=== PATIENT | female | born 1980 | race Caucasian/White ===

== ENCOUNTER 2021-10-22 15:05 | Emergency (ER) | payer OTHER ==
[~2021-10-22] VITALS: Ht 162.6 cm; Wt 72.6 kg
[~2021-10-22 15:05] MED LIST: ACETAMINOPHEN-1 EAC1 PO; ACTICIN 5% CREA60 G1 TOP; ADDERALL 20 MG20 MG PO; ADDERALL XR 3030 MG PO; ALEVE220 MG PO; BACTRIM 400-801 EACH PO; BACTRIM DS TAB1 EACH PO; CARAFATE 1 GM TA1 GM PO; CIPRO; CIPRO250 MG PO; CIPRO500 MG PO; CIPROFLOXACIN500 M1 PO; CLEOCIN HCL300 MG PO; CLONAZEPAM0.125 MG; COMPAZINE10 MG PO; DIFLUCAN150 MG PO; DOXYCYCLINE 10100 M1; DOXYCYCLINE 10100 M2 PO; EMVERM100 MG PO; FISHOIL; FLAGYL 250 MG250 MG GT; FLAGYL500 MG PO; FLEXERIL PO; FLONASE 0.05%50 MCG NS; HYDROCODON-ACE1 EAC7 PO; HYDROCODONE-AP1 EAC6 PO; IBUPROFEN 800800 MG PO; IMURAN 50MG TAB50 M1 PO; ITRACONAZOLE 1100 M1 PO; LORTAB 5 MG/5001 TA1; MACROBID 100 M100 M1 PO; MOBIC7.5 MG PO; MULTIVITAMINS; NAPROSYN500 MG PO; NEURONTIN 300300 M1; NOHOMEMEDICATIONS; NORCO 5-325 TA1 EACH PO; NYSTATIN 100,0015 G1 TP; NYSTATIN15 GM TP; ONDANSETRON HCL4 M2 PO; PEPCID20 MG PO; PERCOCET 5-3251 EACH; PERCOCET 5-3251 EACH PO; PERCOCET 7.5-31 EACH PO; PHENERGAN 25 MG25 M1 PO; PREDNISONE 5 MG5 M1 PO; PYRIDIUM200 M1 PO; PYRIDIUM200 MG PO; ROBAXIN 750 MG750 M1 PO; ROBAXIN500 MG PO; TORADOL 10 MG T10 MG PO; VICODIN 5-5001 EACH PO; VIIBRYD10 MG; VITAMIN B-12100 MC1; XANAX 0.25 MG0.25 MG PO; ZOFRAN ODT4 MG PO; ZOFRAN4 MG PO; ZOLOFT100 MG; ZOLOFT100 MG PO
[2021-10-22] MEDS ORDERED: CLONAZEPAM 0.50.5 M1 PO (15:19)
[2021-10-22 15:50] LABS: INFLUENZA A ANTIGEN Negative (Negative); INFLUENZA B ANTIGEN Negative (Negative)
[2021-10-22 16:16] VITALS: BP 123/87
== END 2021-10-22 16:17 | disposition home or self-care (01) ==
LOC: M.ERS 15:05
PROVIDERS: Nurse Practitioner Family
DX: J06.9 Acute upper respiratory infection, unspecified (principal); Z20.822 Contact with and (suspected) exposure to COVID-19; F17.210 Nicotine dependence, cigarettes, uncomplicated; Z90.710 Acquired absence of both cervix and uterus; Z79.899 Other long term (current) drug therapy; Z88.0 Allergy status to penicillin